=== PATIENT | male | born 1990 | race Caucasian/White ===

== ENCOUNTER 2021-09-13 10:27 | Emergency (ER) | payer OTHER ==
[2021-09-13] MEDS ORDERED: Sodium Chloride 0.9% 1000 ML 1,000 ML IV STA ×2 (10:41→13:20)
[2021-09-13] MEDS ORDERED: MOTRIN 600 MG PO STA (10:41)
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
[2021-09-13] MEDS ORDERED: MOTRIN 600 MG ONE (10:48)
[2021-09-13] MEDS ORDERED: Sodium Chloride 0.9% 1000 ML 1,000 ML ONE ×2 (10:48→13:26)
[2021-09-13 11:12] LABS: Hematocrit 37.7 % (42-50); Hemoglobin 12.9 gm/dl (12.5-18.0); Mean Cell Volume 89.8 fl (78-100); Mean Corpuscular Hemoglobin 30.7 pg (26-32); Mean Corpuscular Hgb Concent. 34.2 g/dl (32-36); Mean Platelet Volume 9.3 fl (7.5-11.0); Platelet Count 223 K/mm3 (150-450); Red Cell Distribution Width 13.9 % (11.5-14.0); White Blood Count 9.2 K/mm3 (4.0-10.5)
[2021-09-13 11:27] LABS: ACETAMINOPHEN 10 ug/ml (10-30); ALBUMIN 4.3 g/dL (3.5-5.0); ALKALINE PHOSPHATASE 60 U/L (38-126); ANION GAP 13.5 MEQ/L (5-15); BLOOD UREA NITROGEN 20 mg/dL (9-20); CHLORIDE 107 mmol/L (98-107); Carbon Dioxide 25 mmol/L (22-30); Creatinine 1 0.86 mg/dL (0.66-1.25); EST GLOMERULAR FILTRATION RATE > 60.0 ML/MIN; ETHYL ALCOHOL < 10 mg/dL (0-10); Glucose 85 mg/dL (74-106); LDH-LACTATE DEHYDROGENASE 307 U/L (120-246); Potassium 3.5 mmol/L (3.5-5.1); SALICYLATE 1.3 mg/dL (2-20); SGOT/AST 62 U/L (17-59); SGPT/ALT 15 U/L (0-50); SODIUM 141 mmol/L (137-145)
--- NOTE | 2021-09-13 11:33 | XRAY ---
Indication: Confusion. Multiple contiguous axial images obtained through the head without contrast. Comparison: None Normal appearing brain parenchyma, ventricles, and bony calvarium. Visualized paranasal sinuses and mastoid air cells are clear. Impression: Normal CT head without contrast exam.
[2021-09-13 11:42] LABS: INFLUENZA A NEGATIVE (NEGATIVE); INFLUENZA B NEGATIVE (NEGATIVE)
[2021-09-13 11:43] LABS: COVID AG -BINAX NOW RAPID TEST NEGATIVE (NEGATIVE)
[2021-09-13 12:05] LABS: Appearance CLEAR (CLEAR); Bilirubin NEGATIVE (NEGATIVE); Blood NEGATIVE Ery/ul (0-5); Glucose NEGATIVE (NEGATIVE); Ketones TRACE (NEGATIVE); Leukocyte Esterase NEGATIVE (NEGATIVE); Mucus SLIGHT /HPF (NEGATIVE); Nitrite NEGATIVE (NEGATIVE); Protein,Urine Dip NEGATIVE (Negative); Specific Gravity 1.029 (1.005-1.025); Urobilinogen NEGATIVE mg/dL (0-1); WBC 0-2 /HPF (0-5)
[2021-09-13 12:25] LABS: Barbiturate,Urine NEGATIVE (NEGATIVE); Benzodiazepine,Urine NEGATIVE (NEGATIVE); Cocaine,Urine NEGATIVE (NEGATIVE); Methadone,Urine NEGATIVE (NEGATIVE); Opiate,Urine NEGATIVE (NEGATIVE); PCP,Urine NEGATIVE (NEGATIVE); THC,Urine POSITIVE (NEGATIVE)
[2021-09-13] MEDS ORDERED: TYLENOL 325 MG PO STA (13:21)
[2021-09-13] MEDS ORDERED: TYLENOL 325 MG ONE (13:26)
[2021-09-13 13:36] LABS: Amphetamine,Urine POSITIVE (NEGATIVE)
[2021-09-13 20:09] VITALS: BP 103/73; PULSE 87; O2SAT 96
== END 2021-09-14 00:05 | disposition home or self-care (01) ==
LOC: ED 10:27
DX: R50.9 Fever, unspecified (principal); F15.10 Other stimulant abuse, uncomplicated; F12.90 Cannabis use, unspecified, uncomplicated; M79.10 Myalgia, unspecified site; F31.9 Bipolar disorder, unspecified; F41.9 Anxiety disorder, unspecified; K21.9 Gastro-esophageal reflux disease without esophagitis; Z72.0 Tobacco use; U07.1 COVID-19
CPT/HCPCS: 36000; 36415; 70450; 80053; 80307; 81001; 82728; 83605; 83615; 85027; 86308; 87040; 87400; 87651; 93041; 94760; 96360; 99000; 99284; G0480; A9270-GY